=== PATIENT | female | born 1955 | race Caucasian/White ===

== ENCOUNTER → 2016-07-14 | Outpatient (REF) ==
[~2016-07-14] MED LIST: ASPIRIN 81M81 MG/TA2 PO; BLOOD PRESSURE MED
== END ==
LOC: ZLAB.WCH 16:53
DX: Z01.89 Encounter for other specified special examinations (principal)

== ENCOUNTER → 2016-11-01 | Outpatient (CLI) | payer OTHER | LOC: MC.RAD 08:00 | DX: Z12.31 Encounter for screening mammogram for malignant neoplasm of breast (principal) ==

== ENCOUNTER → 2017-12-10 | Outpatient (CLI) | payer OTHER | LOC: MC.RAD 07:37 | DX: Z12.31 Encounter for screening mammogram for malignant neoplasm of breast (principal) ==